=== PATIENT | female | born 1980 | race Caucasian/White ===

== ENCOUNTER → 2021-02-23 16:40 | Outpatient (CLI) | payer OTHER, SELFPAY ==
[2021-02-23 19:03] LABS: COVID19 -Nasal RAPID Negative (Negative)
== END ==
PROVIDERS: Visit Provider Nurse Practitioner
DX: Z20.822 Contact with and (suspected) exposure to COVID-19 (principal)
CPT/HCPCS: 87635

== ENCOUNTER → 2021-07-27 09:56 | Outpatient (CLI) | payer OTHER, SELFPAY | PROVIDERS: Referring Provider Nurse Practitioner Family; Visit Provider Nurse Practitioner Family | DX: L72.3 Sebaceous cyst (principal); L08.9 Local infection of the skin and subcutaneous tissue, unspecified | CPT/HCPCS: 87070; 87075; 87205 ==

== ENCOUNTER 2023-11-28 12:09 | Emergency (ER) | payer OTHER, SELFPAY ==
[2023-11-28 12:11] VITALS: BP 159/98; PULSE 98; RESP 18; TEMP 36.9; O2SAT 100; BMI 39.1
--- NOTE | 2023-11-28 12:18 | DI.US.S_ITS ---
PROCEDURE: US PERIPH VENOUS LOW EXTREM LT INDICATIONS: pain/swelling in lower leg, r/o DVT TECHNIQUE: Real-time imaging, as well as color and pulse Doppler interrogation, were performed of the lower extremity deep veins from the inguinal ligament to the popliteal fossa, with documentation of the visualized calf veins. COMPARISON: None. FINDINGS: The common femoral, femoral, popliteal, and the visualized calf veins are normally compressible, and free of intraluminal thrombus. Color and pulse Doppler demonstrate normal phasic intraluminal flow. There is normal augmentation response to distal compression maneuver. Occlusive thrombus is seen within the greater saphenous vein extending from the distal thigh to the calf. Thrombus does not approach the confluence of the greater saphenous vein and common femoral vein. IMPRESSION: 1. No findings of lower extremity deep venous thrombosis. 2. Superficial venous thrombus involving the greater saphenous vein at the distal thigh and calf. Approved by: Ashok Medina M.D. on 11/28/2023 at 13:43
--- NOTE | 2023-11-28 13:07 | ED.EXTPRO ---
HPI - Extremity Problem General Chief complaint: Extremity Problem,Nontraumatic Stated complaint: leg px and tingling sent by PCP Time Seen by Provider: 11/28/23 12:50 Source: patient Mode of arrival: Ambulatory History of Present Illness HPI Narrative: This is a 43-year-old female presents to the emergency department due to left knee pain onset about 5 days ago. States that it began to the medial posterior aspect of the left knee. Denies any trauma to the knee. States that this gotten more swollen with some mild redness and some pain. Denies any decreases in range of motion. No bony knee pain. Reports some mild paresthesias to her distal toes. Not taking any hormone medication, no history of previous DVTs no history of varicose veins, no history of vein ablations, no recent , no malignancy or hypercoagulable states, no history of previous DVTs. Relatively active involving playing with her grandkids. Related Data Previous Rx's Medication Instructions Recorded enoxaparin 40 mg/0.4 mL 40 mg (0.4 mL) SUBCUT DAILY 45 11/28/23 subcutaneous syringe (Lovenox) days #18 mL rivaroxaban 10 mg tablet 10 mg PO DAILY #45 tabs 11/28/23 rivaroxaban 10 mg tablet 10 mg PO DAILY #45 tabs 11/28/23 Allergies Allergy/AdvReac Type Severity Reaction Status Date / Time No Known Drug Allergies Allergy Unverified 03/12/23 15:59 Review of Systems Review of Systems Narrative: GENERAL: Denies chills, fatigue, malaise, fever, sweats. HEENT: Denies sinus pain, ear pain, sore throat, difficulty swallowing, dizziness. RESPIRATORY: Denies dyspnea, cough, wheezing, hemoptysis, sputum. CARDIOVASCULAR: Denies chest pain, palpitations, orthopnea, edema, GASTROINTESTINAL: Denies nausea, vomiting, abdominal pain, diarrhea, constipation, melena. : Denies dysuria, frequency, incontinence, hematuria, urinary retention. MUSCULOSKELETAL: Reports left knee pain SKIN: Denies rash, skin lesions, or other NEUROLOGIC: Denies weakness, headache, numbness, change in speech, confusion, seizures, incoordination. PSYCHIATRIC: No concerning psychosocial issues. 12 point review of systems is negative except for those stated above Patient History Medical History (Updated 11/28/23 @ 13:41 by Tha Ceballos PA-C) Mass of labium Back pain with right-sided sciatica Social History Smoking Status: Never smoker Smoking Status: Never smoker alcohol intake frequency: holidays/special occasions only Substance Use Type: marijuana Exam Narrative Exam Narrative: GENERAL: Well-developed patient, in mild distress. HEAD: Atraumatic. Normocephalic. EYES: Pupils equal round and reactive. Extraocular motions intact. No scleral icterus. No injection or drainage. ENT: Nose without bleeding, purulent drainage. Throat without erythema, tonsillar hypertrophy or exudate. Airway patent. NECK: Trachea midline. Non tender EXTREMITIES: No edema or joint tenderness. NEURO: AOx3. SKIN: Mild erythema, edema and induration to the medial aspect of the left knee. Cool to the touch. No tenderness to palpation of the bony area surrounding this area. Neurovascularly intact throughout. Initial Vital Signs Initial Vital Signs: Vital Signs Temperature 98.5 F 11/28/23 12:11 Pulse Rate 98 H 11/28/23 12:11 Respiratory Rate 18 11/28/23 12:11 Blood Pressure 159/98 H 11/28/23 12:11 Pulse Oximetry 100 11/28/23 12:11 Oxygen Delivery Method Room Air 11/28/23 12:11 Course Orders Ordered: ED Orders 11/28/23 12:18 US periph venous low extrem lt Stat Vital Signs Vital signs: Vital Signs - 8 hr 11/28/23 12:11 11/28/23 13:52 Temperature 98.5 F Pulse Rate 98 H 78 Respiratory Rate 18 18 Blood Pressure 159/98 H 151/81 H Pulse Oximetry 100 100 Oxygen Delivery Method Room Air Room Air MDM - Extremity (Nontraumatic) Imaging Data US - DVT: Radiologist's Impression: [address] [address] Ultrasound Report Signed Patient: Tory Bro MR#: [id number] : 1980 Acct:[id number] Age/Sex: 43 / F Date of Service: 11/28/23 Loc: ED Accession Number: [id number] Procedure: US periph venous low extrem lt Ordering Provider: Anya Huizar D.O. PROCEDURE: US PERIPH VENOUS LOW EXTREM LT INDICATIONS: pain/swelling in lower leg, r/o DVT TECHNIQUE: Real-time imaging, as well as color and pulse Doppler interrogation, were performed of the lower extremity deep veins from the inguinal ligament to the popliteal fossa, with documentation of the visualized calf veins. COMPARISON: None. FINDINGS: The common femoral, femoral, popliteal, and the visualized calf veins are normally compressible, and free of intraluminal thrombus. Color and pulse Doppler demonstrate normal phasic intraluminal flow. There is normal augmentation response to distal compression maneuver. Occlusive thrombus is seen within the greater saphenous vein extending from the distal thigh to the calf. Thrombus does not approach the confluence of the greater saphenous vein and common femoral vein. IMPRESSION: 1. No findings of lower extremity deep venous thrombosis. 2. Superficial venous thrombus involving the greater saphenous vein at the distal thigh and calf. Approved by: Ashok Medina M.D. on 11/28/2023 at 13:43 MDM Narrative Medical decision making narrative: Addendum: Patient called back saying her insurance would not cover rivaroxaban, Lovenox prescribed ED course: This is a 43-year-old female presents to the emergency department due to left knee swelling. No trauma to the area no x-rays were ordered. Erythema and edematous area was closed with the touch and very low concern for any kind of cellulitis. Ultrasound was ordered to rule out DVT which was negative for DVT but did show a SVT longer than 5 cm in the GSV, very far away from the deep venous system. No risk factors for DVT. Up-to-date consulted and recommended treating with prophylactic anticoagulation. We will treat with rivaroxaban 10 mg daily for 45 days with instructions follow up with the primary care provider. Also recommended supportive care for the phlebitis. CC: Left lower extremity swelling Complicating co-morbidities: None Data collected from: Previous notes Medical records reviewed: Patient was not been seen here in the past Differential considered, but not limited to: DVT, SVT, cellulitis, fracture Exam documented above, pertinent findings include: Cool to the touch and low concern for any kind of cellulitis. No surrounding bony tenderness needing any kind of x-rays. Lab Test results independently reviewed as above. Pertinent findings: None obtained Imaging studies independently reviewed: Ultrasound report showed a SVT longer than 5 cm Scores Used: None MIPS Elements: None Consultations: None Treatments: None Re-evaluations: None Discussion: Discussed plan with the patient was comfortable with the plan Diagnosis: SVT Disposition: see below, along with detailed discharge instructions that have been reviewed with patient as well as indications for ED re-evaluation and additional outpatient follow up Discharge Plan Departure Patient Disposition: Home Clinical Impression: Superficial vein thrombosis Activity Restrictions/Additional Instructions: Thank you for coming to the [facility] Emergency Department today. As we discussed you have a superficial clot to the veins in your left leg. Please take medications as prescribed. Please follow up with your primary care provider to discuss eventually stopping of the blood thinning medication. These are blood thinners to please be very careful to not injure her head or any other part of your body or receive any cuts as this may make your blood flow more easily. You may use compression stockings and warm compresses to help with the symptoms. Please return to the emergency department if you develop any chest pain, shortness of breath, worsening of the swelling in your leg or any other concerning signs or symptoms. I hope you feel better soon. Please follow up with your primary care provider within a week if your symptoms continue. If you do not have a primary care provider please contact the [facility] Resource line at [phone]. They will ask some questions about your medical history and help you get set up with a provider in the community. Prescriptions: New rivaroxaban 10 mg tablet 10 mg PO DAILY Qty: 45 0RF Rx Instructions: for 45 days rivaroxaban 10 mg tablet 10 mg PO DAILY Qty: 45 0RF enoxaparin [Lovenox] 40 mg/0.4 mL syringe 40 mg SUBCUT DAILY 45 Days Qty: 18 0RF Referrals: Bela Dunaway MD [Primary Care Provider] - Stand Alone Forms: Patient Portal/API
[2023-11-28 13:52] VITALS: BP 151/81; PULSE 78; RESP 18; O2SAT 100
== END 2023-11-28 13:52 | disposition home or self-care (01) ==
PROVIDERS: Emergency Provider Physician Assistant Medical; PCP Family Medicine
DX: I82.812 Embolism and thrombosis of superficial veins of left lower extremity (principal)
CPT/HCPCS: 93971; 99281; 99283

== ENCOUNTER → 2024-12-10 13:11 | Outpatient (ROUT) | payer OTHER, SELFPAY ==
[2024-12-10 13:40] LABS: Iron 26 ug/dL (37-170)
[2024-12-10 14:18] LABS: Ferritin 6 ng/mL (6-137)
[2024-12-10 14:34] LABS: Vitamin D 25 Hydroxy (D3) 30.5 ng/mL (30.0-100.0)
[2024-12-10 14:35] LABS: Vitamin B12 756 pg/mL (239-931)
[2024-12-11 03:39] LABS: CRP, High Sensitivity 4.42 mg/L (0.00-3.00)
== END ==
LOC: LAB 13:12
PROVIDERS: PCP Family Medicine; Visit Provider Family Medicine
DX: E61.1 Iron deficiency (principal); R79.82 Elevated C-reactive protein (CRP); R63.4 Abnormal weight loss
CPT/HCPCS: 82306; 82607; 82728; 83540; 86140